=== PATIENT | male | born 1990 | race African-American/Black ===

== ENCOUNTER 2023-12-22 17:32 | Emergency (ER) | payer SELFPAY ==
[~2023-12-22] VITALS: Ht 172.7 cm; Wt 80.0 kg
[2023-12-22 17:34] VITALS: BP 122/75; PULSE 70; TEMP 98.7; O2SAT 100
[2023-12-22 19:14] LABS: BASOPHILS % 0.7 % (0.0-2.0); CHLORIDE 108 mEq/L (98-107); EOSINOPHILS % 2.7 % (0.0-5.0); HEMATOCRIT. 47.9 % (42.0-52.0); HEMOGLOBIN. 15.9 g/dL (14.0-18.0); LYMPHOCYTES % 26.3 % (20.0-50.0); MEAN CORPUSCULAR HEMOGLOBIN 31.3 pg (28.0-32.0); MEAN CORPUSCULAR HGB CONC 33.1 g/dL (31.0-37.0); MEAN CORPUSCULAR VOLUME 94.5 fL (80.0-94.0); MEAN PLATELET VOLUME 11.2 fl (7.4-10.4); MONOCYTES % 9.7 % (2.0-8.0); NEUTROPHILS % 60.6 % (40.0-76.0); PLATELET 169 x1000/uL (130-400); POTASSIUM 3.9 mEq/L (3.5-5.1); RED BLOOD CELL COUNT 5.07 mill/uL (4.7-6.1); RED CELL DISTRIBUTION WIDTH 13.7 % (11.6-14.6); SODIUM 138 mEq/L (136-145); WHITE BLOOD COUNT 5.7 x1000/uL (4.5-11.0)
[2023-12-22 19:15] LABS: CARBON DIOXIDE 25 mEq/L (21-32)
[2023-12-22 19:16] LABS: CALCIUM 9.7 mg/dL (8.7-10.4)
[2023-12-22 19:20] LABS: GLUCOSE 92 mg/dL (70-105); UREA NITROGEN BLOOD 11 mg/dL (9-23)
[2023-12-22 19:22] LABS: ALANINE AMINOTRANSFERASE 25 IU/L (10-49); ALBUMIN 4.8 g/dL (3.2-4.8); ASPARTATE AMINOTRANSFERASE 25 IU/L (<34)
[2023-12-22 19:23] LABS: BILIRUBIN TOTAL 0.8 mg/dL (0.1-1.0); PROTEIN TOTAL 7.4 g/dL (6.0-8.3)
[2023-12-22 20:00] VITALS: RESP 17
== END 2023-12-22 21:25 | disposition home or self-care (01) ==
LOC: ER 17:32
DX: R53.1 Weakness (principal); E78.00 Pure hypercholesterolemia, unspecified
CPT/HCPCS: 36415; 80053; 85025; 99283